=== PATIENT | male | born 1975 | race Caucasian/White ===

== ENCOUNTER 2020-12-07 19:06 | Emergency (ER) | payer OTHER, SELFPAY ==
[2020-12-07 19:16] VITALS: BP 137/86; PULSE 97; RESP 14; TEMP 36.9; O2SAT 100
--- NOTE | 2020-12-07 19:46 | ED.EAR ---
HPI - Ear Problem General Chief complaint: Ear Stated complaint: pressure in right ear Time Seen by Provider: 12/07/20 19:38 Source: patient and RN notes reviewed Mode of arrival: ambulatory Limitations: no limitations History of Present Illness HPI Narrative: Patient presents today complaining of right ear pressure since yesterday. Currently rates the pain 0.5?1/10 and has tried no [id number] treatment prior to arrival. Denies any additional sick or URI symptoms to include rhinorrhea, congestion, cough, sore throat. Patient is flying in an airplane in 2 days and wanted to be evaluated before he needed to fly. MD Complaint: ear pain Related Data Home Medications Medication Instructions Recorded Confirmed doxycycline hyclate 12/07/20 Allergies Allergy/AdvReac Type Severity Reaction Status Date / Time No Known Allergies Allergy Unknown Verified 09/17/18 08:39 Review of Systems Review of Systems: CONSTITUTIONAL: Denies body aches, fever, chills, or sweats. EYES: Denies visual changes, redness, or discharge. ENT: Denies rhinorrhea, congestion, sore throat. + Right ear pressure CARDIOVASCULAR: Denies chest pain, palpitations, or edema. RESPIRATORY: Denies cough or dyspnea. GASTROINTESTINAL: Denies abdominal pain, nausea, vomiting, or diarrhea. GENITOURINARY: Denies dysuria or hematuria. SKIN: Denies rash, itching, or wounds. MUSCULOSKELETAL: Denies back pain, joint pain, or myalgia. NEUROLOGIC: Denies headache, numbness, tingling, or weakness. PSYCH: Denies depression or anxiety. PMFSH Comments At time of signature, I have reviewed and agree with nursing past medical, surgical, social and family history unless otherwise noted. Please see nursing chart for further information. There is no relevant family history pertinent to the presenting complaint Exam Narrative: GENERAL: Well-appearing, well-nourished, and in no acute distress. HEAD: Normocephalic, atraumatic. EYES: EOMI. No redness or drainage. Conjunctivae normal. ENT: Mucous membranes pink and moist. Nares clear. No rhinorrhea. Left ear normal. Right ear with mild middle ear effusion. NECK: Normal AROM. CHEST: No respiratory distress. EXTREMITIES: Normal range of motion. No edema. SKIN: Warm, dry, no rash. Capillary refill normal. Normal skin turgor. NEURO: No focal deficits. Alert and oriented x3. Gait steady. PSYCH: Normal affect. No signs of depression or anxiety. Course Vital Signs Vital signs: Vital Signs Temperature 98.5 F 12/07/20 19:16 Pulse Rate 97 12/07/20 19:16 Respiratory Rate 14 12/07/20 19:16 Blood Pressure 137/86 12/07/20 19:16 Pulse Oximetry 100 12/07/20 19:16 Temperature 98.5 F 12/07/20 19:16 Pulse Rate 97 12/07/20 19:16 Respiratory Rate 14 12/07/20 19:16 Blood Pressure 137/86 12/07/20 19:16 Pulse Oximetry 100 12/07/20 19:16 Reviewed. Pt has been instructed to follow up with his PCP regarding his elevated blood pressure today. Medical Decision Making Differential Diagnosis Differential Diagnosis: Otitis media, otitis externa, ruptured TM, serous otitis, eustachian tube dysfunction, cerumen impaction Vital Signs Vital Signs: Vital Signs Temperature 98.5 F 12/07/20 19:16 Pulse Rate 97 12/07/20 19:16 Respiratory Rate 14 12/07/20 19:16 Blood Pressure 137/86 12/07/20 19:16 Pulse Oximetry 100 12/07/20 19:16 Temperature 98.5 F 12/07/20 19:16 Pulse Rate 97 12/07/20 19:16 Respiratory Rate 14 12/07/20 19:16 Blood Pressure 137/86 12/07/20 19:16 Pulse Oximetry 100 12/07/20 19:16 Critical Care Time Critical Care Time Critical Care Time: No Discharge Plan Discharge Clinical Impression: Acute serous otitis media of right ear Qualifiers: Recurrence: non-recurrent Qualified Code(s): H65.01 - Acute serous otitis media, right ear Patient Disposition: Home, Self-Care Condition: Stable Instructions: Fluid In The Ear (Serous Otitis M
== END 2020-12-07 19:54 | disposition home or self-care (01) ==
PROVIDERS: Emergency Provider Nurse Practitioner
DX: H65.01 Acute serous otitis media, right ear (principal)
CPT/HCPCS: 99211; G0463

== ENCOUNTER 2023-09-11 15:59 | Emergency (ER) | payer BC, SELFPAY ==
[2023-09-11 16:10] VITALS: BP 143/84; PULSE 68; RESP 18; TEMP 36.2; O2SAT 100
--- NOTE | 2023-09-11 16:15 | ED.EAR ---
HPI - Ear Problem General Chief complaint: Ear Stated complaint: Right Ear Pain Time Seen by Provider: 09/11/23 16:15 Source: patient, RN notes reviewed and old records reviewed Mode of arrival: ambulatory Limitations: no limitations History of Present Illness HPI Narrative: 48 year old male with complaints of right ear pain since Wednesday with no drainage. Patient reports he has had some allergy symptoms of sneezing and cough which have resolved on own but he continues to have right ear pain. Patient reports no recent swimming.Patient reports that he has not taken any OTC medications for his symptoms. Patient reports that he has had ear infections in past and also incidence of cellulitis of his right ear and did not want ear to get bad. MD Complaint: ear pain Location: right ear Duration: constant (5-6 days) Severity: mild Discharge from ear: Reports no Associated symptoms ear: other (pain) Related Data Home Medications Medication Instructions Recorded Confirmed doxycycline hyclate 100 mg capsule 12/07/20 Allergies Allergy/AdvReac Type Severity Reaction Status Date / Time No Known Allergies Allergy Unknown Verified 09/17/18 08:39 Review of Systems Review of Systems: CONSTITUTIONAL: Denies malaise, chills, sweats, or fever. EYES: Denies visual changes, redness, or discharge. ENT: Reports no rhinorrhea, congestion, sinus pain, right otalgia and no sore throat. CARDIOVASCULAR: Denies chest pain, palpitations, or edema. RESPIRATORY: Reports intermittent cough.? Denies dyspnea. GASTROINTESTINAL: Denies abdominal pain, nausea, vomiting, diarrhea SKIN: Denies rash or itching. MUSCULOSKELETAL: Denies myalgia. NEUROLOGIC: Denies headache. All systems reviewed & are unremarkable except as noted in HPI and below PMFSH Past Medical History Medical History (Updated 09/11/23 @ 18:15 by Jamilah Venegas NP) Cellulitis of right ear Pneumonia Rosacea Surgical History Surgical History (Updated 09/11/23 @ 18:16 by Jamilah Venegas NP) Hx of cholecystectomy Hx of tonsillectomy Social History Social History (Updated 09/11/23 @ 18:14 by Jamilah Venegas NP) Smoking status: Never smoker Alcohol intake: current Alcohol use details: social Substance use type: does not use Comments At time of signature, agree with nursing past medical, surgical, social and family history. There is no relevant family history pertinent to the presenting complaint Exam Narrative: GENERAL: Well-appearing, well-nourished, and in no acute distress. HEAD: Normocephalic EYES: PERRLA, conjunctivae clear ENT: Nares clear, turbinates edematous and erythematous, clear discharge. Mucous membranes moist. Right TM red, Left TM pearly degroot with dull light reflex bilaterally; no tragal tenderness. Oropharynx erythematous without lesions. Tonsils not present and without exudate, no drooling, no hoarseness, no trismus, uvula midline.post nasal drainage noted. NECK: Supple. No lymphadenopathy CHEST: Clear to auscultation, breath sounds equal. No wheezing, rhonchi, rales, or stridor. No respiratory distress, speaks in full sentences.SAO2 100% on room air HEART: Regular rate and rhythm. No murmur heard. SKIN: Warm, dry, no rash. NEURO: Alert and oriented x3. PSYCH: Normal mood and affect Course Course Emergency Course: Patient is aware of diagnosis, understands and agrees to treatment plan.? Anticipatory guidance given.? Patient agrees to follow-up as directed and is aware of reasons to seek care at the emergency department. Portions of this record may have been created with voice recognition software Level of Care: Express Care Visit Vital Signs Vital signs: Vital Signs Temperature 36.2 C L 09/11/23 16:10 Pulse Rate 68 09/11/23 16:10 Respiratory Rate 18 09/11/23 16:10 Blood Pressure 143/84 H 09/11/23 16:10 Pulse Oximetry 100 09/11/23 16:10 Oxygen Delivery Room Air 09/11/23
== END 2023-09-11 16:35 | disposition home or self-care (01) ==
PROVIDERS: Emergency Provider Registered Nurse; PCP Family Medicine Sports Medicine
DX: H65.01 Acute serous otitis media, right ear (principal)
CPT/HCPCS: 99213; G0463

== ENCOUNTER 2024-04-19 08:12 | Emergency (ER) | payer BC, SELFPAY ==
[2024-04-19 08:18] VITALS: BP 154/89; PULSE 98; RESP 16; TEMP 36.3; O2SAT 99
--- OUTSIDE RECORDS SUMMARY | 2024-04-19 08:26 | XMS_ITS | Encounter Summary ---
Author Organization [facility] Address [address] [place] [address] Care Team Providers Care Pump Erector Helper Name Role Phone Unavailable Primary Care Provider Unavailabl e Encounter Details Date Type Department Care Team (Late st Contact Info) Description 09/14/2019 Lab Requisition [facility] [address] [place] [address] Wander Mendoza MD Social History Tobacco Use Types Packs/Day Years Used Date Smoking Tobacco: Never Smokeless Tobacco: Never Alcohol Use Standard Drinks/Week Comments Yes 0 (1 standard drink = 0.6 oz pur e alcohol) Sex and Gender Information Value Date Recorded Sex Assigned at Not on file Gender Identity Not on file Sexual Orientation Not on file documented as of this encounter Plan of Treatment Not on file documented as of this encounter Procedures Procedure Name Priority Date/Time Associated Diagnosis Comments SARS-COV-2 (COVID-19) IN HOUSE Routine 09/13/2019 1:36 PM CDT documented in this encounter Results * SARS-COV-2 (COVID-19) IN HOUSE (09/13/2019 1:36 PM CDT) COVID-19 PCR Not detected Not detected, Invalid 09/14/2019 4:[address] [facility] Microbiology SPECIMEN FROM NASOPHARYNGEAL STRUCTURE / Unknown Collection / Unknown 09/13/2019 1:36 PM CDT 09/14/2019 10:[address] [facility] - 09/14/2019 4:04 PM CDT This nucleic acid amplification assay performance was validated by [facility]. This test has been authorized by the Food and Drug administration (FDA)under an Emergency Use Authorization (EUA). This test has been validated in accordance with the FDA's guidance document Policy for Diagnostic Testing in Laboratories Certified to perform High Complexity Testing under CLIA prior to Emergency Use Authorization for Coronavirus Disease-2019 during the Public Health Emergency issued on May 06, 2019. FDA independent review of this validation is pending. This test is only authorized for the duration of time the declaration that circumstances exist justifying the authorization of emergency use of in vitro diagnostic tests for detection of SARS-CoV-2 virus and/or diagnosis of COVID-19 infection under section 564(b)(1) of the Act, 21 U.S.C 360bbb-3 (b)(1), unless the authorization is terminated or revoked sooner. Wander Mendoza MD LAB - MICROBIOLOGY ORDERABLES [facility] [address] [place] [address], [facility] [phone] documented in this encounter Visit Diagnoses Not on filedocumented in this encounter Additional Health Concerns Infection Onset Date Last Indicated Resolved Time COVID-19 Under Investigation 09/14/2019 09/13/2019 09/14/2019 4:04 PM CDT documented as of this encounter
--- OUTSIDE RECORDS SUMMARY | 2024-04-19 08:26 | XMS_ITS | Referral Summary ---
Author Organization [facility] Address [address] [place] [address] Care Team Providers Care Cylinder Die Machine Helper Name Role Phone Unavailable Primary Care Provider Unavailabl e Source Comments [facility],non-owned Affiliates and Associated Physician Practices is amultiple site organization consisting of ambulatory clinics and hospital sitesin [place], [place], [place] and [place]. This disclosure is being madepursuant to the Care Everywhere program and may not contain all information available regarding this patient. Last updated 17.[facility] [employer] Allergies No known active allergies Medications Be aware that medications may not be up to date on this document. Always verify current medications with the patient. No known medications Social History Tobacco Use Types Packs/Day Years Used Date Smoking Tobacco: Never Smokeless Tobacco: Never Alcohol Use Standard Drinks/Week Comments Yes 0 (1 standard drink = 0.6 oz pur e alcohol) Sex and Gender Information Value Date Recorded Sex Assigned at Not on file Gender Identity Not on file Sexual Orientation Not on file Last Filed Vital Signs Vital Sign Reading Time Taken Comments Blood Pressure 120/90 09/16/2018 9:34 AM CDT Pulse 74 09/16/2018 9:34 AM CDT Temperature 36.6 C (97.8 F) 09/16/2018 9:34 AM CDT Respiratory Rate 20 09/16/2018 9:34 AM CDT Oxygen Saturation - - Inhaled Oxygen Concentration - - Weight 147.4 kg (325 lb) 09/16/2018 9:34 AM CDT Height 182.9 cm (6') 09/16/2018 9:34 AM CDT Body Mass Index 44.08 09/16/2018 9:34 AM CDT Plan of Treatment Not on file
--- OUTSIDE RECORDS SUMMARY | 2024-04-19 08:26 | XMS_ITS | Encounter Summary ---
Author Organization [facility] Address [address] [place] [address] Care Team Providers Care Grab Jack Man Name Role Phone Unavailable Primary Care Provider Unavailabl e Reason for Visit * Reason Comments Refill Request Encounter Details Date Type Department Care Team (Late st Contact Info) Description 01/14/2023 Refill [facility] [address] [place] [id number] Shahida Edmondson MD [address] [facility] [address] [place] [address] Refill Request Social History Tobacco Use Types Packs/Day Years [...] on file documented as of this encounter Visit Diagnoses Not on filedocumented in this encounter
--- OUTSIDE RECORDS SUMMARY | 2024-04-19 08:26 | XMS_ITS | Clinical Summary ---
Author Organization [facility] Address [address] [place] [address] Care Team Providers Care International Recruiter Name Role Phone Gayle Esquivel MD Primary Care Provider [phone] Allergies No known active allergies Medications doxycycline hyclate (VIBRAMYCIN) 100 MG capsule Take 1 capsule (100 mg total) by mouth 2 (two) times daily. 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 Drooping of mouth 10/03/2018 Acute infection of right ear 09/30/2018 Immunizations Name Administration Dates Next Due Fluzone 6 Months+ Quad (0.5 mL Prefilled Syringe) 02/24/2021,12/22/2019 Influenza (Generic) 12/08/2018, 7,12/16/2015, 014,03/19/2013 MMR 11/20/1993 MODERNA COVID-19 (12+) MRNA, LNP-S, PF, 100 MCG/ 0.5 ML DOSE 07/18/2020,06/20/2020 MODERNA COVID-19 (CUT OFF WORKER ELIZABETH RADHA), MRNA, LNP-S, PF, 50 MCG/ 0.25 ML DOSE 03/10/2021 Tdap (Adacel) 03/14/2020 Family History Medical History Relation Comments Diabetes Father Cancer Mother Relation Status Comments Father Mother Social History Tobacco Use Types Packs/Day Years Used Date Smoking Tobacco: Never Smokeless Tobacco: Never Tobacco Cessation:Counseling Given: No Alcohol Use Standard Drinks/Week Comments Yes 0 (1 standard drink = 0.6 oz pur e alcohol) Occasionally AUDIT-C Answer Date Recorded Frequency of Alcohol Consumption Never 09/30/2018 Average Number of Drinks Not on file 019 Frequency of Binge Drinking Not on file 09/06 PHQ-2 Answer Date Recorded PHQ-2 Score - If the patient scores above 3, please move on to questions 3-9 0 03/14/2020 Sex and Gender Information Value Date Recorded Sex Assigned at Not on file Legal Sex Male 4:16 PM CDT Gender Identity Not on file Sexual Orientation Not on file Last Filed Vital Signs Vital Sign Reading Time Taken Comments Blood Pressure 134/82 12/18/2022 10:23 AM CDT Pulse 67 12/18/2022 10:23 AM CDT Temperature 36.2 C (97.2 F) 12/18/2022 10:23 AM CDT Respiratory Rate 18 12/18/2022 10:23 AM CDT Oxygen Saturation 98% 12/18/2022 10:23 AM CDT Inhaled Oxygen Concentration - - Weight 122.5 kg (270 lb) 12/18/2022 10:23 AM CDT Height 182.9 cm (6') 12/18/2022 10:23 AM CDT Body Mass Index 36.62 12/18/2022 10:23 AM CDT Plan of Treatment Health Maintenance Due Date Last Done Comments Colorectal Cancer Screening Colonoscopy (10 Years) 1976 PHQ-2 ([facility] [place]) 1988 Hepatitis C 01/21/1994 Hepatitis B Vaccines (1 of 3 - 19+ 3-dose series) 01/21/1995 Annual Physical 03/14/2021 03/14/2020 COVID-19 Vaccine ( season) 2023 03/10/2021, 07/18/2020, 06/20/2020 Influenza Adult (#1) 2023 02/24/2021, 12/22/2019, 12/08/2018, Additional history exists PHQ-2 ([facility] [place]) 03/08/2024 DTaP, Tdap and Td Vaccines (2 - Td or Tdap) 03/14/2030 03/14/2020 Meningococcal B Vaccine Aged Out No l onger eligible based on patient's age to complete this topic Meningococcal Vaccine Aged Out No michel yoli eligible based on patient's age to complete this topic Pneumococcal Vaccine: Pediatrics (0 to 5 Years) and At-Risk Patients (6 to 64 Years) Aged Out No longer eligible based on patient's age to complete this topic RSV Immunizations Under 20 Months Aged Out No longer eligible based on patient's age to complete this topic Insurance Care Teams International Recruiter Relationship Specialty Start Date End Date Gayle Esquivel MD [address] [place] [address] PCP - General FAMILY PRACTICE 09/19/18
--- OUTSIDE RECORDS SUMMARY | 2024-04-19 08:26 | XMS_ITS | Clinical Summary ---
Author Organization [facility] Address [address] [place] [address] Care Team Providers Care Security Intern Name Role Phone Unavailable Primary Care Provider Unavailabl e Source Comments [facility],non-owned Affiliates and Associated Physician Practices is amultiple site organization consisting of ambulatory clinics and hospital sitesin [place], [place], [place] and [place]. This disclosure is being madepursuant to the Care Everywhere program and may not contain all information available regarding this patient. Last updated 17.[facility] Allergies No known active allergies Medications Be [...] 09/16/2018 9:34 AM CDT Plan of Treatment Health Maintenance Due Date Last Done Comments COLOGUARD (AGES 45-75) - COL ON CA SCREENING 1976 COLON MONITORING 1976 COLONOSCOPY - COLON CA SCREENING 1976 CT COLONOGRAPHY - COLON CA SCREENING 1976 Colorectal Cancer Screening 1976 FIT - COLON CA SCREENING 1976 FLEX SIG - COLON CA SCREENING 1976 LIPID TESTING 1976 HIV SCREENING 01/21/1991 HEPATITIS C SCREENING 01/17/1994 DTAP/TDAP/TD VACCINES (1 - Tdap) 01/21/1995 HEPATITIS B VACCINE (1 of 3 - 19+ 3-dose series) 01/21/1995 SCREENING FOR DIABETES 09/16/2018 COVID-19 VACCINE (2023-2 5 season) 2023 INFLUENZA VACCINE (#1) 2023 DEPRESSION SCREENING 03/08/2024 ZOSTER VACCINE (1 of 2) 01/21/2026 HIB VACCINE Aged Out No longer eligi ble based on patient's age to complete this topic HPV VACCINE Aged Out No longer eligi ble based on patient's age to complete this topic MENINGOCOCCAL (Group B) VACCINE Aged Out No longer eligible based on patient's age to complete this topic MENINGOCOCCAL VACCINE Aged Out No michel yoli eligible based on patient's age to complete this topic PNEUMOCOCCAL VACCINE Aged Out No long er eligible based on patient's age to complete this topic
--- OUTSIDE RECORDS SUMMARY | 2024-04-19 08:27 | XMS_ITS | Clinical Summary ---
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 Dysfunction of both eustachian tubes 03/18/2022 Surgical History Surgery Date Site/Laterality Comments CHOLECYSTECTOMY 03/08/2019 - 03/07/2020 Medical History Medical History Date Comments Allergic rhinitis H/O Gonzalez's palsy Pancreatitis Family History Medical History Relation Name Comments Diabetes Brother Diabetes Father Lung cancer Mother Relation Name Status Comments Brother Father Mother Social History Tobacco Use Types Packs/Day Years Used Date Smoking Tobacco: Never Smokeless Tobacco: Never Tobacco Cessation:Counseling Given: Not Answered Personal Safety Answer Date Recorded Getting School Help Needed Not on file 02/27 Sex and Gender Information Value Date Recorded Sex Assigned at Not on file Legal Sex Male 5:51 PM MOBILE HOME INSTALLER Gender Identity Not on file Sexual Orientation Not on file Obstetrics History Last Filed Vital Signs Vital Sign Reading Time Taken Comments Blood Pressure - - Pulse - - Temperature - - Respiratory Rate 18 03/18/2022 8:50 AM MOBILE HOME INSTALLER Oxygen Saturation - - Inhaled Oxygen Concentration - - Weight 126.1 kg (278 lb) 03/18/2022 8:50 AM MOBILE HOME INSTALLER Height 182.9 cm (6') 03/18/2022 8:50 AM MOBILE HOME INSTALLER Body Mass Index 37.7 03/18/2022 8:50 AM MOBILE HOME INSTALLER Plan of Treatment Health Maintenance Due Date Last Done Comments Colon Cancer Screening-Colonoscopy 1976 Depression Screening 1976 Hepatitis C Screening 1976 Hepatitis B Screening 01/21/1994 Regular Well Visit/Exam 18-64 01/21/1994 Covid-19 Vaccine ( season) 2023 03/10/2021, 07/18/2020, 06/20/2020 Influenza Vaccine (#1) 2023 , 12/22/2019, 12/08/2018, Additional history exists DTaP/Tdap/Td Vaccine (2 - Td or Tdap) 03/14/2030 03/14/2020 Pneumococcal vaccine <65 Aged Out No longer eligible based on patient's age to complete this topic Insurance [id number] H[facility]PPO Address: [facility] [address] [place] [address] Care Teams Materials Management Supervisor Relationship Specialty Start Date End Date Gayle Esquivel MD [address] [address] [place] [address] PCP - General Sports Medicine 03/10/22
--- OUTSIDE RECORDS SUMMARY | 2024-04-19 08:27 | XMS_ITS | Clinical Summary ---
Author Organization [facility] Address [address] [place] [address] Phone Care Team Providers Care Cosmetic Surgeon Name Role Phone Gayle Esquivel MD Primary Care Provider [phone] Mark Gill DPM Unavailable Unavailable Allergies No known active allergies Medications DOXYCYCLINE HYCLATE PO Take by mouth. Active Active Problems Problem Noted Date Diagnosed Date Acute cholecystitis 09/14/2019 Common bile duct (CBD) obstruction 09/13/2019 Gallbladder dilatation 09/13/2019 Elevated LFTs 09/13/[address] scan 09/13/2019 Elevated BP without diagnosis of hypertension Gallstone pancreatitis 09/13/2019 Contusion of right great toe with damage to nail 10/14/2016 Subungual hematoma of great toe of right foot Immunizations Immunization Administration Dates Next Due Covid-19, Mrna, Lnp-s, PF, 1 00 mcg/0.5 mL Dose (Moderna) 07/18/2020,06/20/2020 Family History Medical History Relation Name Comments Diabetes Father Heart Attack Father Cancer Mother Relation Name Status Comments Brother Alive smoker Father type 2 dm Maternal Grandfather Maternal Grandmother Alive Mother Alive lung ca Paternal Grandfather Paternal Grandmother Social History Tobacco Use Types Packs/Day Years Used Date Smoking Tobacco: Never Smokeless Tobacco: Never Tobacco Cessation:Counseling Given: No Alcohol Use Standard Drinks/Week Comments Yes 0 (1 standard drink = 0.6 oz pur e alcohol) rarely Sex and Gender Information Value Date Recorded Sex Assigned at Not on file Legal Sex Male 7:21 PM CDT Gender Identity Not on file Sexual Orientation Not on file Last Filed Vital Signs Vital Sign Reading Time Taken Comments Blood Pressure 134/80 01/07/2022 10:28 AM CDT Pulse 77 01/07/2022 10:28 AM CDT Temperature 36.5 C (97.7 F) 01/07/2022 10:28 AM CDT Respiratory Rate 18 01/07/2022 10:28 AM CDT Oxygen Saturation 97% 01/07/2022 10:28 AM CDT Inhaled Oxygen Concentration - - Weight 127 kg (280 lb) 01/07/2022 10:28 AM CDT Height 182.9 cm (6') 01/07/2022 10:28 AM CDT Body Mass Index 37.97 01/07/2022 10:28 AM CDT Plan of Treatment Health Maintenance Due Date Last Done Comments Hepatitis C Virus (HCV) Screening 1975 Hepatitis B Immunization (1 of 3 - 19+ 3-dose series) 01/21/1995 Colonoscopy 01/21/2021 Colorectal Cancer Screening 01/21/2021 Influenza Immunization (#1) 2023 12, 12/22/2019, 12/08/2018, Additional history exists SARS-COV-2 Immunization ( season) 2023 03/10/2021, 07/18/2020, 06/20/2020 Respiratory Syncytial Virus (RSV) Immunization (Adult) (1 - 1-dose 75+ series) 01/21/2051 DTaP/Tdap/Td Immunization Discontinued 03/14/2020 TdaP Immunization Completed 03/14/2020 Meningococcal Immunization (ACWY) Aged Out No longer eligible based on patient's age to complete this topic Pneumococcal Immunization Combined Aged Out No longer eligible based on patient's age to complete this topic Rotavirus Immunization Aged Out No lo nger eligible based on patient's age to complete this topic [place] [address] [address] [address] Advance Directives * Full Code (Latest Code Status on File) Date Activated Date Inactivated Comments 09/13/2019 8:24 PM 09/15/2019 7:02 PM CPR-Full Tina tment: FULL ARREST: Attempt Resuscitation/CPR wit intubation and mechanical ventilation. PRE-ARREST: Use entire range of life support measures to stabilize the patient. Care Teams Cosmetic Surgeon Relationship Specialty Start Date End Date Gayle Esquivel MD [address] [place] [id number] PCP - General Family Medicine 09/13/19 Mark Gill DPM Podiatry 01/07/22
--- OUTSIDE RECORDS SUMMARY | 2024-04-19 08:27 | XMS_ITS | Referral Summary ---
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 Dysfunction of both eustachian tubes 03/18/2022 Social History Tobacco Use Types Packs/Day Years Used Date Smoking Tobacco: Never Smokeless Tobacco: Never Tobacco Cessation:Counseling Given: Not Answered Personal Safety Answer Date Recorded Getting School Help Needed Not on file 02/27 Sex and Gender Information Value Date Recorded Sex Assigned at Not on file Legal Sex Male 5:51 PM REFORMATORY ATTENDANT Gender Identity Not on file Sexual Orientation Not on file Last Filed Vital Signs Vital Sign Reading Time Taken Comments Blood Pressure - - Pulse - - Temperature - - Respiratory Rate 18 03/18/2022 8:50 AM REFORMATORY ATTENDANT Oxygen Saturation - - Inhaled Oxygen Concentration - - Weight 126.1 kg (278 lb) 03/18/2022 8:50 AM REFORMATORY ATTENDANT Height 182.9 cm (6') 03/18/2022 8:50 AM REFORMATORY ATTENDANT Body Mass Index 37.7 03/18/2022 8:50 AM REFORMATORY ATTENDANT Plan of Treatment Not on file Insurance [facility] CHOICE PLUS Care Teams Loan Coordinator Relationship Specialty Start Date End Date Gayle Esquivel MD [address] [address] PCP - General Sports Medicine 03/10/22
--- OUTSIDE RECORDS SUMMARY | 2024-04-19 08:27 | XMS_ITS | Patient Health Summary ---
Author Organization [facility] Address [address] [place] [address] Care Team Providers Care Button And Buckle Maker Name Role Phone Unavailable Primary Care Provider Unavailabl e Note from [facility] [place],non-owned Affiliates and Associated Physician Practices is amultiple site organization consisting of ambulatory clinics and hospital sitesin [place], [place], [place] and [place]. This disclosure is being madepursuant to the Care Everywhere program and may not contain all information available regarding this patient. Last updated 17.[facility] Allergies No known active allergies Medications Be [...] Mass Index 44.08 09/16/2018 9:34 AM CDT Procedures * DERMATOPATHOLOGY(Performed 10/02/2020) * SARS-COV-2 (COVID-19) IN HOUSE(Performed 09/13/2019) Results * DERMATOPATHOLOGY (10/02/2020 3:33 AM CDT) Case Report Dermatopathology Report Case: [id number] Authorizing Provider: Shahida Edmondson MD Collected: 10/02/2020 03:33 AM Ordering Location: [facility] DermPath Lab Received: 10/03/2020 06:17 AM Pathologist: Denise Guerrero MD Specimen: Skin, right calf 4:39 PM CDT DERMATOPATHOLOGY LABORATORY Final Diagnosis Specimen A. SKIN, right calf: SUPERFICIAL PERIVASCULAR LYMPHOCYTIC INFILTRATE WITH EOSINOPHILS (L27.0) (see microscopic description and comment) 4:39 PM CDT DERMATOPATHOLOGY LABORATORY Clinical History DF. R/O atypia 4:39 PM CDT DERMATOPATHOLOGY LABORATORY Gross Description Specimen A: Received is one formalin filled container labeled with the patient's name and designated right calf. The specimen consists of a shave biopsy measuring 7x4x1 mm. Jar 0. 4:39 PM CDT DERMATOPATHOLOGY LABORATORY Microscopic Description Specimen A. SKIN, right calf: Sections show a perivascular and interstitial infiltrate including lymphocytes and eosinophils. There are no prominent epidermal or interface changes. Grocott's methenamine silver (GMS) stain fails to highlight fungal elements in the available sections. Additional deeper sections were obtained and reviewed. COMMENT: These histological findings can be seen in an arthropod bite reaction, favored, urticaria and hypersensitivity reactions to an ingested allergen. Clinical correlation is recommended. 4:39 PM CDT DERMATOPATHOLOGY LABORATORY Disclaimer An external and internal positive and negative controls are appropriate for the histochemical, immunohistochemical and immunofluorescence stain(s) in this case (if any), except where stated explicitly. The performance characteristics of the stain(s) cited in this report were developed and its performance characteristic determined by the Dermatopathology Laboratory at [facility], directed by Dr. Vannesa Sena. These tests need not be, and therefore are not, approved by the [place] Food and Drug Administration. The tests are used for clinical purposes. Billing Codes Specimen Charges Stain Charges 88509 1 79054 1 1 4:39 PM CDT DERMATOPATHOLOGY LABORATORY Embedded Images 1 4:39 PM CDT DERMATOPATHOLOGY LABORATORY Pathology/Cytolo gy TISSUE SPECIMEN FROM SKIN / Unknown 10/02/2020 3:33 AM CDT 10/03/2020 6:17 AM CDT Shahida Edmondson MD LAB - PATHOLOGY/CYTO LOGY ORDERABLES DERMATOPATHOLOGY LABORATORY [facility] - Department of Dermatology [address], [address] [phone] * SARS-COV-2 (COVID-19) IN HOUSE (09/13/2019 1:36 PM CDT) COVID-19 PCR Not detected Not detected, Invalid 09/14/2019 4:04 PM CDT [facility] Microbiology SPECIMEN FROM NASOPHARYNGEAL STRUCTURE / Unknown Collection / Unknown 09/13/2019 1:36 PM CDT 09/14/2019 10:10 AM CDT Narrative [facility] - 09/14/2019 4:04 PM CDT This nucleic acid amplification assay performance was validated by [facility]. This test has been authorized [...] Wander Mendoza MD LAB - MICROBIOLOGY ORDERABLES [facility] [address] [place] [address], [facility] [phone]
--- NOTE | 2024-04-19 08:33 | ED_ITS ---
HPI - Ear Problem General Chief complaint: Ear Stated complaint: Right Ear Pain Time Seen by Provider: 04/19/24 08:33 Source: patient, RN notes reviewed and old records reviewed Mode of arrival: ambulatory Limitations: no limitations History of Present Illness HPI Narrative: 49 year old male who presents to [facility] care with complaints of feeling off on Wednesday and on Wednesday having sinus pressure, headache, and right ear pain. Patient reports he had a fever 100.2 last night he has had some cough and body aches and chills some sinus congestion with drainage. Patient reports he has been taking [id number] cold and flu medication any has also taken 1 dose of Sudafed. Patient reports his children tested positive for flu yesterday. MD Complaint: ear pain and other (Cough body aches, sinus pressure) Location: right ear Discharge from ear: Reports no Treatment prior to arrival: other (Cold and flu medication, Sudafed) Related Data Home Medications ?Medication ?Instructions ?Recorded ?Confirmed ?Last Taken ?Type doxycycline hyclate 100 mg capsule 12/07/20 Unknown History Allergies Allergy/AdvReac Type Severity Reaction Status Date / Time No Known Allergies Allergy Unknown Verified 09/17/18 08:39 Review of Systems Review of Systems: CONSTITUTIONAL: Reports malaise, chills, sweats, or fever. EYES: Denies visual changes, redness, or discharge. ENT: Reports rhinorrhea, congestion, sinus pain, right otalgia and sore throat. CARDIOVASCULAR: Denies chest pain, palpitations, or edema. RESPIRATORY: Reports cough.? Denies dyspnea. GASTROINTESTINAL: Denies abdominal pain, nausea, vomiting, diarrhea SKIN: Denies rash or itching. MUSCULOSKELETAL: Reports myalgia. NEUROLOGIC: Report headache. All systems reviewed & are unremarkable except as noted in HPI and below PMFSH Past Medical History Medical History Rosacea Cellulitis of right ear Pneumonia Surgical History Surgical History Hx of cholecystectomy Hx of tonsillectomy Social History Social History Smoking status: Never smoker Alcohol intake: current Alcohol use details: social Substance use type: does not use Comments At time of signature, agree with nursing past medical, surgical, social and family history. There is no relevant family history pertinent to the presenting complaint Exam Narrative: GENERAL: Well-appearing, well-nourished, and in no acute distress. HEAD: Normocephalic EYES: PERRLA, conjunctivae clear ENT: Nares clear, turbinates edematous and erythematous, clear discharge. Mucous membranes moist right TM red, left TM pearly degroot with dull light reflex; no tragal tenderness. Oropharynx erythematous without lesions. Tonsils red not enlarged and without exudate, no drooling, no hoarseness, no trismus, uvula midline. Postnasal drainage NECK: Supple. No lymphadenopathy CHEST: Clear to auscultation, breath sounds equal. No wheezing, rhonchi, rales, or stridor. No respiratory distress, speaks in full sentences. Cough SaO2 99% room air HEART: Regular rate and rhythm. No murmur heard. SKIN: Warm, dry, no rash. NEURO: Alert and oriented x3. PSYCH: Normal mood and affect Course Course Emergency Course: Patient is aware of diagnosis, understands and agrees to treatment plan.? Anticipatory guidance given.? Patient agrees to follow-up as directed and is aware of reasons to seek care at the emergency department. Portions of this record may have been created with voice recognition software Level of Care: Express Care Visit Vital Signs Vital signs: Vital Signs Temperature 36.3 C L 04/19/24 08:18 Pulse Rate 98 04/19/24 08:18 Respiratory Rate 16 04/19/24 08:18 Blood Pressure 154/89 H 04/19/24 08:18 Pulse Oximetry 99 04/19/24 08:18 Oxygen Delivery Room Air 04/19/24 08:18 Temperature 36.3 C L 04/19/24 08:18 Pulse Rate 98 04/19/24 08:18 Respiratory Rate 16 04/19/24 08:18 Blood Pressure 154/89 H 04/19/24 08:18 Pulse Oximetry 99 04/19/24 08:18 Oxygen Delivery Room Air 04/19/24 08:18 Reviewed Medical Decision Making Differential Diagnosis Differential Diagnosis: URI , otitis media, sinusitis, viral infection, influenza, COVID Medical Records Medical records reviewed: Yes I reviewed the external patient's medical records. Vital Signs Vital Signs: Vital Signs Temperature 36.3 C L 04/19/24 08:18 Pulse Rate 98 04/19/24 08:18 Respiratory Rate 16 04/19/24 08:18 Blood Pressure 154/89 H 04/19/24 08:18 Pulse Oximetry 99 04/19/24 08:18 Oxygen Delivery Room Air 04/19/24 08:18 Temperature 36.3 C L 04/19/24 08:18 Pulse Rate 98 04/19/24 08:18 Respiratory Rate 16 04/19/24 08:18 Blood Pressure 154/89 H 04/19/24 08:18 Pulse Oximetry 99 04/19/24 08:18 Oxygen Delivery Room Air 04/19/24 08:18 Lab Data Lab results reviewed: Yes I reviewed the patient's lab results. Lab results narrative: Influenza a positive, influenza B negative, COVID antigen negative Labs: Lab Results 04/19/24 Range/Units 08:44 POC Influenza A Ag Positive (Negative) POC Influenza B Ag Negative (Negative) POC SARS CoV-2 Ag Negative (Negative) reviewed Critical Care Time Critical Care Time Critical Care Time: No Discharge Plan Discharge Clinical Impression: Influenza A Otitis media Qualifiers: Otitis media type: serous Chronicity: acute Laterality: right Recurrence: non- recurrent Qualified Code(s): H65.01 - Acute serous otitis media, right ear Patient Disposition: Home, Self-Care Condition: Stable Instructions: Antibiotic Form, Influenza (ED), Ear Infection (GEN) Additional Instructions: Increase fluids especially juices and water Oppn-[id number] cough and cold medicine of your choice for your symptoms Zyrtec Claritin or Rani daily include Coricidin brand decongestant Tylenol or ibuprofen for any fever pain heat to the face 20-30 minutes 4-6 times a day for pain Salt water gargles, throat lozenges or throat sprays as desired Antibiotic as directed--finished the medication If your symptoms persist, change or worsen significantly before you can contact your personal physician then please, without delay, go to the emergency department for further evaluation. Follow-up with PCP in 7-10 days or sooner if needed Follow up with PCP soon in regards to your blood pressure which is elevated above threshold for referral. Blood pressure above 120/80 may indicate pre- hypertension. 154/89 Patient Language: Qatari Prescriptions: New amoxicillin 875 mg tablet 875 mg PO Q12H Qty: 20 0RF Rx Instructions: Complete all doses No Action doxycycline hyclate 100 mg capsule amoxicillin 875 mg tablet 875 mg PO Q12H Qty: 20 0RF Rx Instructions: take all of prescription Follow-up/Referrals: Alvin,Gayle Humphrey MD [Primary Care Provider] - Time of Disposition: 08:49 Quality [place] Coma Scale Eyes: Open Verbal: Oriented and Alert Motor: Follows Commands [place] Coma Total Score: 15
[2024-04-19 08:49] LABS: EDCOVIDSCREEN Negative (Negative); EDINFLUASCREEN Positive (Negative); EDINFLUBSCREEN Negative (Negative)
== END 2024-04-19 08:56 | disposition home or self-care (01) ==
PROVIDERS: Emergency Provider Registered Nurse; PCP Family Medicine Sports Medicine
DX: J10.1 Influenza due to other identified influenza virus with other respiratory manifestations (principal); H65.01 Acute serous otitis media, right ear; Z20.822 Contact with and (suspected) exposure to COVID-19
CPT/HCPCS: 87426; 87804; 99213; G0463